=== PATIENT | female | born 1955 | race Asian ===

== ENCOUNTER 2023-09-25 06:06 | Emergency (ER) | payer OTHER ==
[~2023-09-25] VITALS: Ht 165.1 cm; Wt 57.6 kg
[2023-09-25 06:18] VITALS: BP 134/76; PULSE 73; RESP 16; TEMP 98.2; O2SAT 99
[2023-09-25 06:34] VITALS: O2SAT 97
[2023-09-25 06:35] VITALS: BP 134/76; PULSE 73; RESP 16; TEMP 98.2; O2SAT 99
[2023-09-25] MEDS ORDERED: IBUP-2213 PO (06:57)
[2023-09-25] MEDS ORDERED: BENC TP (06:57)
[2023-09-25] MEDS ORDERED: VALA1TAB40 PO (06:57)
[2023-09-25 07:22] LABS: ANION GAP 10.8 (8-16); CALCIUM 8.8 mg/dL (8.5-10.1); CREATININE 0.9 mg/dL (0.6-1.3); POTASSIUM 4.8 mmol/L (3.5-5.1)
== END 2023-09-25 07:44 | disposition home or self-care (01) ==
LOC: MED 06:06
DX: B02.9 Zoster without complications (principal); Z79.899 Other long term (current) drug therapy
CPT/HCPCS: 36415; 80048; 99283